=== PATIENT | female | born 1990 | race Two or more races ===

== ENCOUNTER 2024-01-29 21:44 | Emergency (ER) | payer BC ==
[~2024-01-29] VITALS: Ht 152.4 cm; Wt 70.3 kg
[2024-01-29 22:29] LABS: BASOPHILS # (AUTO) 0.1 X10'3 (0-0.2); BASOPHILS % (AUTO) 0.7 % (0-1); EOSINOPHILS # (AUTO) 0.2 X10'3 (0-0.9); EOSINOPHILS % (AUTO) 1.4 % (0-6); HEMATOCRIT 40.6 % (35.0-45.0); HEMOGLOBIN 14.1 g/dl (12.0-16.0); LYMPHOCYTES # (AUTO) 3.5 X10'3 (1.1-4.8); LYMPHOCYTES % (AUTO) 25.6 % (21-51); MEAN CORPUSCULAR HEMOGLOBIN 30.6 PG (27.0-31.0); MEAN CORPUSCULAR HGB CONC 34.8 g/dL (33.0-36.5); MEAN CORPUSCULAR VOLUME 88.1 FL (78-98); MEAN PLATELET VOLUME 7.4 FL (7.4-10.4); MONOCYTES # (AUTO) 0.9 X10'3 (0-0.9); MONOCYTES % (AUTO) 6.7 % (2-12); NEUTROPHILS % (AUTO) 65.6 % (42-75); PLATELET COUNT 361 X10'3 (140-440); RED CELL DISTRIBUTION WIDTH 12.9 % (11.5-14.5); WHITE BLOOD COUNT 13.8 X10'3 (4.5-11.0)
[2024-01-29 22:35] LABS: ALANINE AMINOTRANSFERASE 27 U/L (12-78); ALBUMIN 3.9 G/DL (3.4-5.0); ALKALINE PHOSPHATASE 42 IU/L (46-116); ANION GAP 8 (8-16); ASPARTATE AMINO TRANSFERASE 12 U/L (10-37); BILIRUBIN,TOTAL 0.5 MG/DL (0.1-1.0); BLOOD UREA NITROGEN 9 MG/DL (7-18); BUN/CREATININE RATIO 13.2 (10.0-20.0); CALCIUM 8.9 MG/DL (8.5-10.1); CHLORIDE 104 MMOL/L (99-107); CREATININE 0.68 MG/DL (0.40-0.90); GLUCOSE 117 MG/DL (70-104); SODIUM 141 MMOL/L (135-145); TOTAL CARBON DIOXIDE 28.8 MMOL/L (24-32); eCRCL 85 ML/MIN; eGFR > 90 ML/MIN
[2024-01-29 23:46] LABS: APTT 26 SECONDS (22-32); PROTHROMBIN TIME 10.4 SECONDS (9.0-12.0)
[2024-01-29 23:47] LABS: CREATINE KINASE 72 U/L (26-192); FREE T4 (FREE THYROXINE) 0.91 NG/DL (0.73-1.40); THYROID STIMULATING HORMONE 12.18 ulU/ml (0.34-4.50)
[2024-01-30 01:46] LABS: BILIRUBIN,URINE NEGATIVE (Neg); CLARITY,URINE SLIGHTLY CLOUDY (Clear); COLOR,URINE YELLOW (Yellow); GLUCOSE, URINE NEGATIVE (Neg); KETONES,URINE NEGATIVE (Neg); LEUKOCYTE ESTERASE ,URINE TRACE (Neg); NITRITES, URINE NEGATIVE (Neg); OCCULT BLOOD,URINE LARGE (Neg); PROTEIN,URINE TRACE mg/dl (Neg); UROBILINOGEN,URINE 0.2 E.U/dL (0.2-1.0)
[2024-01-30 01:50] LABS: UA COLLECTION TYPE CLN CATCH MIDSTREAM
[2024-01-30 01:53] LABS: URINE AMPHETAMINE SCREEN NEGATIVE (Neg); URINE BARBITUATE SCREEN NEGATIVE (Neg); URINE BENZODIAZEPINES SCREEN NEGATIVE (Neg); URINE CANNABINOID SCREEN POSITIVE (Neg); URINE COCAINE SCREEN NEGATIVE (Neg); URINE METHADONE SCREEN NEGATIVE (Neg); URINE OPIATE SCREEN POSITIVE (Neg); URINE PHENCYCLIDINE SCREEN NEGATIVE (Neg)
[2024-01-30 01:54] LABS: RBC,URINE 0-2 /HPF (0-2); WBC,URINE 0-4 /HPF (0-4)
[2024-01-30 01:55] LABS: AMORPHOUS PHOSPHATES 1+; BACTERIA,URINE 1+ /HPF (Neg); FINE GRANULAR CAST 0-3 /LPF (NEGATIVE); RENAL CELLS, URINE FEW /HPF; SQUAMOUS EPITHELIAL CELL,UR FEW /LPF (FEW)
[2024-01-30 02:04] LABS: BETA HCG,QUANTITATIVE < 1.0 mIU/ml
[2024-01-30] MEDS: POTASSIUM BICARB 20meq eff tab 20 MEQ TABLET.EFF PO ONE (02:58)
[2024-01-30] MEDS: potassium CL 10mEq/100ml bag 100 ML IV STA (03:01)
[2024-01-30] MEDS: magnesium 2GM in 50ml NS 50 ML IV ONE (03:02)
[2024-01-30 03:30] VITALS: TEMP 98.2
[2024-01-30] MEDS ORDERED: MORP15TA PO (04:40)
[2024-01-30 04:43] VITALS: BP 103/65; PULSE 73; RESP 20; O2SAT 96
== END 2024-01-30 04:44 | disposition home or self-care (01) ==
LOC: ER 21:45
DX: S02.11HA Other fracture of occiput, left side, initial encounter for closed fracture (principal); R32 Unspecified urinary incontinence; R51.9 Headache, unspecified; G40.89 Other seizures; E87.6 Hypokalemia; Z88.2 Allergy status to sulfonamides; Z79.899 Other long term (current) drug therapy; W18.39XA Other fall on same level, initial encounter; Y93.89 Activity, other specified; Y92.89 Other specified places as the place of occurrence of the external cause; Y99.8 Other external cause status
CPT/HCPCS: 36415; 70450; 71045; 72125; 73080; 80053; 80305; 81001; 82550; 82948; 83605; 84439; 84443; 84484; 84702; 85025; 85610; 85730; 87088; 93005; 96365; 96366; 96368; 99285; J3475; J3480

== ENCOUNTER → 2024-03-04 | Outpatient (CLI) | payer BC ==
[~2024-03-04] MED LIST: MORP15TA PO
== END | disposition home or self-care (01) ==
LOC: RAD 07:56
PROVIDERS: ATTEND Family Medicine
DX: R56.9 Unspecified convulsions (principal); R55 Syncope and collapse
CPT/HCPCS: 95816

== ENCOUNTER 2024-03-24 12:39 | Outpatient (CLI) | payer BC | END 2024-03-24 23:59 | disposition home or self-care (01) | LOC: MRI 12:39 | PROVIDERS: ATTEND Surgery | DX: R90.82 White matter disease, unspecified (principal); R56.9 Unspecified convulsions; R55 Syncope and collapse | CPT/HCPCS: 70551 ==

== ENCOUNTER 2025-04-14 16:35 | Emergency (ER) | payer BC ==
[~2025-04-14] VITALS: Ht 149.9 cm; Wt 69.3 kg
[2025-04-14 18:22] LABS: MEAN PLATELET VOLUME 7.1 FL (7.4-10.4); RED CELL DISTRIBUTION WIDTH 12.5 % (11.5-14.5)
[2025-04-14 18:27] LABS: LEUKOCYTE ESTERASE ,URINE NEGATIVE (Neg); NITRITES, URINE NEGATIVE (Neg); OCCULT BLOOD,URINE NEGATIVE (Neg)
[2025-04-14 18:30] LABS: URINE HCG NEGATIVE (NEG)
[2025-04-14 18:31] LABS: CREATININE 0.64 MG/DL (0.40-0.90); TOTAL CARBON DIOXIDE 26.8 MMOL/L (24-32); eCRCL 85 ML/MIN; eGFR > 90 ML/MIN
[2025-04-14 18:38] LABS: UA COLLECTION TYPE CLN CATCH MIDSTREAM
[2025-04-14 18:40] LABS: MUCUS STRANDS FEW /LPF (Neg); SQUAMOUS EPITHELIAL CELL,UR MODERATE /LPF (FEW)
[2025-04-14 18:41] LABS: RENAL CELLS, URINE FEW /HPF
[2025-04-14 18:42] LABS: AMORPHOUS URATES 3+
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
[2025-04-14 19:51] VITALS: BP 114/80; PULSE 99; RESP 18; TEMP 98.6; O2SAT 99
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
[2025-04-14] MEDS ORDERED: METR-159 PO (22:25)
[2025-04-14] MEDS ORDERED: DOXY-1 PO (22:25)
[2025-04-14] MEDS: DOXYCYCLINE 100MG CAPSULE PO STA (22:29)
== END 2025-04-14 22:37 | disposition home or self-care (01) ==
LOC: EEVIPCON 16:35 → ER 16:35
DX: S40.012A Contusion of left shoulder, initial encounter (principal); M54.2 Cervicalgia; Z88.1 Allergy status to other antibiotic agents; Z88.2 Allergy status to sulfonamides; Z88.5 Allergy status to narcotic agent; W50.3XXA Accidental bite by another person, initial encounter; Y93.89 Activity, other specified; Y92.89 Other specified places as the place of occurrence of the external cause; Y99.8 Other external cause status
CPT/HCPCS: 36415; 70498; 80048; 81001; 81025; 85025; 87088; 99285; Q9967